=== PATIENT | female | born 1950 | race Two or more races ===

== ENCOUNTER 2018-04-14 21:56 | Emergency (ER) | payer OTHER ==
[~2018-04-14] VITALS: Ht 157.5 cm; Wt 76.2 kg
[~2018-04-14 21:56] MED LIST: ALPRAZOLAM0.5 MG PO; FIORICET TABLET1 TAB; MAXALT10 MG; SYNTHROID50 MCG; VASOTEC20 MG; VOLTAREN-XR100 MG; XANAX0.25 MG
[2018-04-14] MEDS ORDERED: SIMVASTATIN10 MG PO (22:05)
[2018-04-14] MEDS ORDERED: BACTRIM DS TAB1 EACH PO (23:01)
== END 2018-04-14 23:24 | disposition home or self-care (01) ==
LOC: ER 21:56
DX: L03.032 Cellulitis of left toe (principal)

== ENCOUNTER 2018-05-28 09:13 | Outpatient (CLI) | payer OTHER ==
[~2018-05-28 09:13] MED LIST changes: +BACTRIM DS TAB1 EACH PO; +SIMVASTATIN10 MG PO
== END 2018-05-28 10:00 | disposition home or self-care (01) ==
LOC: NUCLEAR 09:13
DX: M81.0 Age-related osteoporosis without current pathological fracture (principal); G89.4 Chronic pain syndrome; I11.9 Hypertensive heart disease without heart failure; M65.272 Calcific tendinitis, left ankle and foot; E03.8 Other specified hypothyroidism; K57.30 Diverticulosis of large intestine without perforation or abscess without bleeding; E55.9 Vitamin D deficiency, unspecified; Z12.31 Encounter for screening mammogram for malignant neoplasm of breast

== ENCOUNTER 2018-05-28 12:41 | Outpatient (CLI) | payer OTHER | END 2018-05-28 12:53 | disposition home or self-care (01) | LOC: MAMO-SONO 12:41 | DX: Z12.31 Encounter for screening mammogram for malignant neoplasm of breast (principal); Z87.898 Personal history of other specified conditions; G89.4 Chronic pain syndrome; I11.9 Hypertensive heart disease without heart failure; M65.272 Calcific tendinitis, left ankle and foot; E03.8 Other specified hypothyroidism; K57.30 Diverticulosis of large intestine without perforation or abscess without bleeding; E55.9 Vitamin D deficiency, unspecified; E66.8 Other obesity ==

== ENCOUNTER → 2019-08-17 | Outpatient (CLI) | payer OTHER | END | disposition home or self-care (01) | LOC: MAMO-SONO 10:25 | DX: Z12.31 Encounter for screening mammogram for malignant neoplasm of breast (principal); Z87.898 Personal history of other specified conditions ==

== ENCOUNTER 2022-04-09 17:09 | Emergency (ER) | payer OTHER ==
[~2022-04-09] VITALS: Ht 157.5 cm; Wt 79.4 kg
[2022-04-09] MEDS ORDERED: PEPCID AC20 MG PO (21:55)
[2022-04-09] MEDS ORDERED: LEVSIN/SL0.125 MG SL (21:55)
[2022-04-09] MEDS ORDERED: METRONIDAZOLE500 MG PO (21:55)
[2022-04-09] MEDS ORDERED: CIPRO500 MG PO (21:55)
[2022-04-09] MEDS ORDERED: INTESTINEX680 M1 PO (21:55)
== END 2022-04-09 22:23 | disposition home or self-care (01) ==
LOC: ER 17:09
DX: R10.32 Left lower quadrant pain (principal); Z91.041 Radiographic dye allergy status; E03.9 Hypothyroidism, unspecified; K57.30 Diverticulosis of large intestine without perforation or abscess without bleeding

== ENCOUNTER 2022-06-11 11:03 | Outpatient (CLI) | payer OTHER ==
[~2022-06-11 11:03] MED LIST changes: +CIPRO500 MG PO; +INTESTINEX680 M1 PO; +LEVSIN/SL0.125 MG SL; +METRONIDAZOLE500 MG PO; +PEPCID AC20 MG PO
== END 2022-06-11 11:14 | disposition home or self-care (01) ==
LOC: RAD 11:03
PROVIDERS: ATTEND Colon & Rectal Surgery
DX: M15.8 Other polyosteoarthritis (principal); M70.62 Trochanteric bursitis, left hip

== ENCOUNTER → 2022-08-15 08:00 | Outpatient (CLI) | payer OTHER ==
[~2022-08-15] VITALS: Ht 157.5 cm; Wt 72.6 kg
== END | disposition home or self-care (01) ==
LOC: LAB 08:00 → SURH 08-21 09:30 → EDSTATUS 08-21 11:00
PROVIDERS: ATTEND Colon & Rectal Surgery
DX: K59.09 Other constipation (principal); K59.02 Outlet dysfunction constipation; I10 Essential (primary) hypertension; Z03.818 Encounter for observation for suspected exposure to other biological agents ruled out; Z20.822 Contact with and (suspected) exposure to COVID-19

== ENCOUNTER → 2022-08-29 07:07 | Outpatient (CLI) | payer OTHER | END | disposition home or self-care (01) | LOC: LAB 08-28 10:59 | PROVIDERS: ATTEND Specialist | DX: N39.0 Urinary tract infection, site not specified (principal); D68.2 Hereditary deficiency of other clotting factors; R79.83 Abnormal findings of blood amino-acid level ==

== ENCOUNTER 2022-11-16 09:45 | Inpatient (IN) | payer OTHER ==
[~2022-11-16] VITALS: Ht 157.5 cm; Wt 70.3 kg
[~2022-11-16 09:45] MED LIST changes: -XANAX0.25 MG; +XANAX0.25 MG PO
[2022-11-20] MEDS ORDERED: ATORVASTATIN CA20 MG (08:19)
[2022-11-20] MEDS ORDERED: CINNAMON500 MG (08:19)
[2022-11-20] MEDS ORDERED: ALPRAZOLAM0.5 MG (08:19)
== END 2022-11-22 18:19 | disposition home or self-care (01) | DRG 330 ==
LOC: O/R 11-20 05:55 → SURH 11-20 05:55
PROVIDERS: ADMIT Colon & Rectal Surgery; ATTEND Colon & Rectal Surgery
PROC: 0DBP4ZZ Excision of Rectum, Percutaneous Endoscopic Approach (ICD-10-PCS; 2022-11-20)
PROC: 0DTN4ZZ Resection of Sigmoid Colon, Percutaneous Endoscopic Approach (ICD-10-PCS; principal; 2022-11-20 07:00)
DX: K56.41 Fecal impaction (principal); Q43.8 Other specified congenital malformations of intestine; N73.6 Female pelvic peritoneal adhesions (postinfective)

== ENCOUNTER 2022-12-06 20:59 | Inpatient (IN) | payer OTHER ==
[~2022-12-06] VITALS: Ht 157.5 cm; Wt 71.7 kg
[~2022-12-06 20:59] MED LIST changes: +ALPRAZOLAM0.5 MG; +ATORVASTATIN CA20 MG; +CINNAMON500 MG
[2022-12-10] MEDS ORDERED: CINNAMON500 MG (11:08)
[2022-12-10] MEDS ORDERED: ABATINEX680 MG (11:08)
[2023-01-07] MEDS ORDERED: PRILOSEC OTC20 MG (21:56)
[2023-01-07] MEDS ORDERED: LEVOTHYROXINE25 MCG (21:56)
[2023-01-07] MEDS ORDERED: XANAX XR0.5 MG PO (21:57)
[2023-01-07] MEDS ORDERED: MIRALAX510 GM (21:57)
[2023-01-07] MEDS ORDERED: NASAL MIST126 ML (21:57)
== END 2023-01-05 17:33 | disposition home health service (06) | DRG 856 ==
LOC: ER 20:59 → SURH 23:38
PROVIDERS: ADMIT Colon & Rectal Surgery; ATTEND Colon & Rectal Surgery
PROC: 0D9670Z Drainage of Stomach with Drainage Device, Via Natural or Artificial Opening (ICD-10-PCS; 2022-12-06)
PROC: BW21ZZZ Computerized Tomography (CT Scan) of Abdomen and Pelvis (ICD-10-PCS; 2022-12-06)
PROC: 2W13X6Z Compression of Abdominal Wall using Pressure Dressing (ICD-10-PCS; 2022-12-07)
PROC: 8E0ZXY6 Isolation (ICD-10-PCS; 2022-12-09)
PROC: 05HY33Z Insertion of Infusion Device into Upper Vein, Percutaneous Approach (ICD-10-PCS; 2022-12-09)
PROC: 3E0336Z Introduction of Nutritional Substance into Peripheral Vein, Percutaneous Approach (ICD-10-PCS; 2022-12-09)
PROC: 0JD80ZZ Extraction of Abdomen Subcutaneous Tissue and Fascia, Open Approach (ICD-10-PCS; principal; 2022-12-12)
PROC: BW2110Z Computerized Tomography (CT Scan) of Abdomen and Pelvis using Low Osmolar Contrast, Unenhanced and Enhanced (ICD-10-PCS; 2022-12-12)
PROC: 0W9G30Z Drainage of Peritoneal Cavity with Drainage Device, Percutaneous Approach (ICD-10-PCS; 2022-12-13)
PROC: 0W9J30Z Drainage of Pelvic Cavity with Drainage Device, Percutaneous Approach (ICD-10-PCS; 2022-12-13)
PROC: 0JD80ZZ Extraction of Abdomen Subcutaneous Tissue and Fascia, Open Approach (ICD-10-PCS; 2022-12-19)
PROC: BW2110Z Computerized Tomography (CT Scan) of Abdomen and Pelvis using Low Osmolar Contrast, Unenhanced and Enhanced (ICD-10-PCS; 2022-12-19)
PROC: 0W2GX0Z Change Drainage Device in Peritoneal Cavity, External Approach (ICD-10-PCS; 2022-12-21)
PROC: 0W2JX0Z Change Drainage Device in Pelvic Cavity, External Approach (ICD-10-PCS; 2022-12-21)
PROC: BF37ZZZ Magnetic Resonance Imaging (MRI) of Pancreas (ICD-10-PCS; 2022-12-21)
PROC: BF36ZZZ Magnetic Resonance Imaging (MRI) of Liver and Spleen (ICD-10-PCS; 2022-12-21)
PROC: 0JD80ZZ Extraction of Abdomen Subcutaneous Tissue and Fascia, Open Approach (ICD-10-PCS; 2022-12-26)
PROC: 0F7D8DZ Dilation of Pancreatic Duct with Intraluminal Device, Via Natural or Artificial Opening Endoscopic (ICD-10-PCS; 2022-12-26)
PROC: BF181ZZ Fluoroscopy of Pancreatic Ducts using Low Osmolar Contrast (ICD-10-PCS; 2022-12-26)
PROC: 0JD80ZZ Extraction of Abdomen Subcutaneous Tissue and Fascia, Open Approach (ICD-10-PCS; 2023-01-02)
PROC: BW2110Z Computerized Tomography (CT Scan) of Abdomen and Pelvis using Low Osmolar Contrast, Unenhanced and Enhanced (ICD-10-PCS; 2023-01-02)
DX: T81.43XA Infection following a procedure, organ and space surgical site, initial encounter (principal); K85.90 Acute pancreatitis without necrosis or infection, unspecified; T81.32XA Disruption of internal operation (surgical) wound, not elsewhere classified, initial encounter; K56.690 Other partial intestinal obstruction; K86.3 Pseudocyst of pancreas; Z16.12 Extended spectrum beta lactamase (ESBL) resistance; Z16.24 Resistance to multiple antibiotics; N13.2 Hydronephrosis with renal and ureteral calculous obstruction; K57.20 Diverticulitis of large intestine with perforation and abscess without bleeding; B37.49 Other urogenital candidiasis; T85.618A Breakdown (mechanical) of other specified internal prosthetic devices, implants and grafts, initial encounter; B96.20 Unspecified Escherichia coli [E. coli] as the cause of diseases classified elsewhere; L98.492 Non-pressure chronic ulcer of skin of other sites with fat layer exposed; I10 Essential (primary) hypertension; E89.0 Postprocedural hypothyroidism; Z90.49 Acquired absence of other specified parts of digestive tract; Z86.73 Personal history of transient ischemic attack (TIA), and cerebral infarction without residual deficits

== ENCOUNTER → 2023-01-07 | Emergency (ER) | payer OTHER ==
[~2023-01-07] VITALS: Ht 157.5 cm; Wt 65.3 kg
[~2023-01-07] MED LIST changes: +ABATINEX680 MG; +LEVOTHYROXINE25 MCG; +MIRALAX510 GM; +NASAL MIST126 ML; +PRILOSEC OTC20 MG; +XANAX XR0.5 MG PO
== END | disposition left against medical advice (07) ==
LOC: ER 21:27
DX: Z53.21 Procedure and treatment not carried out due to patient leaving prior to being seen by health care provider (principal)

== ENCOUNTER 2023-01-08 15:11 | Inpatient (IN) | payer OTHER ==
[~2023-01-08] VITALS: Ht 157.5 cm; Wt 65.3 kg
--- NOTE | 2023-01-08 16:31 | NUR ---
PACIENTE ALERTA Y ORIENTADA POR CHRISTELLE. REFIERE AL MOMENTO DE REALIZAR TRIAGE NO PRESENTA NINGUN SINTOMA, NGOC EL CHEIKH DE CYRUS EN LA TARDE PRESENTO UN EPISODIO DE ADORMECIMIENTO LADO IZQ DEL CUERPO DESDE LA AMPARO HASTA LA PIERNA, DIFICULTAD PARA HABLAR DEBIDO A UQE SE LE VIRO LA AMPARO REFIERE ESPOSO.
--- NOTE | 2023-01-08 17:06 | NUR ---
SE LE ORIENTA A PTE SOBRE TRATAMIENTO A SEGUIR, ROSA REFIERE ENTENDER. SE LE COLECTA MUESTRAS CONRAD ORDEN MEDICA. PENDIENTE U/A Y CT
--- NOTE | 2023-01-09 06:59 | NUR ---
SE RECIBE PACIENTE FEMENINA ALERTA Y ORIENTADA X3, EN CAMA #K5 CON BARRANDAS ELEVADAS. AREA DE VENOPUNCION CON H/L PATENTE VINCENZO DE EDEMA Y ENROJECIMIENTO. SE LE RELIZO CT DE AMY. SE OBSERVA POR CAMBIOS.
[2023-01-14] MEDS ORDERED: LIPITOR40 MG PO (11:03)
[2023-01-14] MEDS ORDERED: ELIQUIS5 MG PO (11:03)
[2023-01-14] MEDS ORDERED: TOPROL XL50 M1 PO (11:04)
[2023-01-14] MEDS ORDERED: VASOTEC20 MG PO (11:04)
== END 2023-01-14 14:41 | disposition home or self-care (01) | DRG 69 ==
LOC: ER 15:11 → MEDI 01-09 08:30 → MEDJ 01-09 08:30 → MEDI 01-09 10:38 → MEDJ 01-09 16:11
PROVIDERS: ADMIT Internal Medicine; ATTEND Internal Medicine
PROC: B345ZZZ Ultrasonography of Bilateral Common Carotid Arteries (ICD-10-PCS; principal; 2023-01-09)
PROC: B24BZZZ Ultrasonography of Heart with Aorta (ICD-10-PCS; 2023-01-09)
PROC: BW38ZZZ Magnetic Resonance Imaging (MRI) of Head (ICD-10-PCS; 2023-01-09)
PROC: 4A12X4Z Monitoring of Cardiac Electrical Activity, External Approach (ICD-10-PCS; 2023-01-10)
PROC: BW21YZZ Computerized Tomography (CT Scan) of Abdomen and Pelvis using Other Contrast (ICD-10-PCS; 2023-01-11)
DX: G45.8 Other transient cerebral ischemic attacks and related syndromes (principal); K65.1 Peritoneal abscess; K86.3 Pseudocyst of pancreas; N39.0 Urinary tract infection, site not specified; G81.94 Hemiplegia, unspecified affecting left nondominant side; I48.0 Paroxysmal atrial fibrillation; E03.9 Hypothyroidism, unspecified; Z20.822 Contact with and (suspected) exposure to COVID-19; I11.9 Hypertensive heart disease without heart failure
CPT/HCPCS: 70544

== ENCOUNTER 2023-02-15 08:28 | Outpatient (CLI) | payer OTHER ==
[~2023-02-15 08:28] MED LIST changes: +ELIQUIS5 MG PO; +LIPITOR40 MG PO; +TOPROL XL50 M1 PO; +VASOTEC20 MG PO
== END 2023-02-15 08:30 | disposition home or self-care (01) ==
LOC: TOM 08:28
PROVIDERS: ATTEND Colon & Rectal Surgery
DX: K57.32 Diverticulitis of large intestine without perforation or abscess without bleeding (principal)

== ENCOUNTER 2023-02-21 12:27 | Outpatient (CLI) | payer OTHER | END 2023-02-21 12:30 | disposition home or self-care (01) | LOC: RAD 12:27 | PROVIDERS: ATTEND Internal Medicine Gastroenterology | DX: K76.2 Central hemorrhagic necrosis of liver (principal) ==